=== PATIENT | male | born 1965 | race Hispanic/Latino ===

== ENCOUNTER 2016-11-12 07:10 | Day surgery (SDC) | payer OTHER ==
[~2016-11-12] VITALS: Ht 167.6 cm; Wt 63.5 kg
[~2016-11-12 07:10] MED LIST: 0.9% Sodium Chloride 1,000 ML IV SCH; OMEP20CA11 PO; Sodium Chloride LOK Flush 10 mL Syringe IV PRN; fentaNYL-PF 50 mCg/mL 2 mL Inj IVPUSH PRN
[2016-11-12 07:44] VITALS: BP 131/90; PULSE 61; RESP 16; O2SAT 100
[2016-11-12 08:25] VITALS: BP 125/62; PULSE 5; RESP 14; O2SAT 99
[2016-11-12 08:41] VITALS: BP 108/75; PULSE 66; RESP 12; O2SAT 95
--- NOTE | 2016-11-12 12:15 | ENDO ---
[address] [address] ENDOSCOPY PROCEDURE PATIENT: TONE WADDELL : 1965 MR#: [id number] ADMIT: 11/12/2016 JOB ID: [id number] DATE OF SERVICE: 11/12/2016 PROCEDURE: Esophagogastroduodenoscopy with biopsy, and colonoscopy. PREOPERATIVE DIAGNOSIS(ES): Dysphagia and colorectal cancer. POSTOPERATIVE DIAGNOSIS(ES): 1. Normal upper endoscopy, status post biopsy. 2. Normal colonoscopy, status post biopsy. ANESTHESIA: Fentanyl 100 mcg, Versed 4 mg IV administered. COMPLICATIONS: None. BLOOD LOSS: Minimal. DESCRIPTION OF PROCEDURE: After risks and benefits explained to the patient, informed consent was obtained. After anesthesia administered, upper endoscope was inserted in mouth, intubated into the esophagus, stomach, second portion of duodenum. Mucosa carefully examined. After procedure was done, the scope withdrawn and procedure terminated. Colonoscope was inserted from the rectum to the cecum. Mucosa carefully examined. Prep of the patient was excellent. After the procedure was done, the scope was withdrawn and the procedure terminated. FINDINGS: Upon inspection of the esophagus, esophagus was normal without masses, ulcers, or lesions. Z-line located at 40 cm from incisors. Upon entering stomach, the stomach also appeared normal without masses, ulcers, or lesions. Retroflexion was normal. Duodenal bulb, first and second portion were normal. Biopsies taken in antrum and distal and mid esophagus. Upon inspection of anus, no masses, hemorrhoids, ulcers, or fissures that were seen throughout the entire examination. There were no polyps, masses, or lesions. Retroflexion was normal. IMPRESSION: 1. Normal colonoscopy. 2. Normal upper endoscopy, status post biopsy. RECOMMENDATION: Await pathology results. Repeat colonoscopy in 10 years for colorectal cancer screening. Follow up at GI clinic as needed.
--- NOTE | 2016-11-15 11:53 | PATH ---
SURGICAL PATHOLOGY Attending Physician:Elbert Garcia MD CASE STATUS: Signed Out PATIENT NAME: TONE WADDELL PID: [id number] : 1965 DATE COLLECTED:11/12/2016 16:24 SPECIMEN: 1: Gastric, Biopsy 2: Gastric, Biopsy 3: Esophagus, Biopsy 4: Esophagus, Biopsy CLINICAL HISTORY: 1). ANTRUM 2). GASTRIC BODY 3). DISTAL ESOPHAGUS 4). MID ESOPHAGUS FINAL DIAGNOSIS: 1.BIOPSIES, GASTRIC ANTRUM: MINIMAL CHRONIC GASTRITIS INVOLVING ANTRAL MUCOSA. Negative for evidence of Helicobacter on H&E stain. Negative for intestinal metaplasia. Negative for dysplasia and malignancy. 2.GASTRIC BODY BIOPSY: MINIMAL CHRONIC GASTRITIS INVOLVING FUNDIC MUCOSA. Negative for evidence of Helicobacter on H&E stain. Negative for intestinal metaplasia. Negative for dysplasia and malignancy. 3.BIOPSIES, DISTAL ESOPHAGUS: FRAGMENTS OF SQUAMOUS EPITHELIUM WITH NO GASTRIC-TYPE MUCOSA PRESENT. Negative for dysplasia and malignancy. Positive for scattered intraepithelial eosinophils consistent with changes of chronic reflux. 4.MID ESOPHAGUS BIOPSY: FRAGMENTS OF SQUAMOUS EPITHELIUM, NEGATIVE FOR ATYPIA. Negative for intraepithelial eosinophils. ICD10 K21.0 GROSS DESCRIPTION: Received are four formalin-filled containers, each labeled with the patient' s name. 1 Received in formalin, labeled with the patient' s name and "antrum", are two fragments of fink, soft tissue ranging in size from 0.2 x 0.1 x 0.1 cm to 0.2 x 0.2 x 0.1 cm. All fragments are totally submitted in cassette 1A. 2 Received in formalin, labeled with the patient' s name and "gastric body", are two fragments of fink, soft tissue ranging in size from 0.1 x 0.1 x 0.1 cm to 0.2 x 0.1 x 0.1 cm. All fragments are totally submitted in cassette 2A. 3 Received in formalin, labeled with the patient' s name and "distal esophagus", are two fragments of fink, soft tissue ranging in size from 0.1 x 0.1 x 0.1 cm to 0.2 x 0.1 x 0.1 cm. All fragments are totally submitted in cassette 3A. 4 Received in formalin, labeled with the patient' s name and "mid esophagus", are three fragments of fink, soft tissue ranging in size from less than 0.1 cm by less than 0.1 cm by less than 0.1 cm to 0.1 x 0.1 x 0.1 cm. All fragments are totally submitted in cassette 4A. ([id number]) MICRO DESCRIPTION: See diagnosis. ICD-9 CODES: CPT CODES: 1: 82467 2: 09520 3: 13426 4: 87269 Electronically Signed Out Roshan Ramos MD [facility] [address], [place] [address] Technical component performed at [facility], [facility] [address], [place], [address]
== END 2016-11-12 23:59 | disposition home or self-care (01) ==
LOC: END 07:10
PROVIDERS: ATTEND Internal Medicine Gastroenterology
DX: Z12.11 Encounter for screening for malignant neoplasm of colon (principal); K29.50 Unspecified chronic gastritis without bleeding; K21.9 Gastro-esophageal reflux disease without esophagitis; J45.909 Unspecified asthma, uncomplicated
CPT/HCPCS: 43239; 99153; G0121; G0500; J2250; J3010; J7030